=== PATIENT | female | born 1935 | race Caucasian/White ===

== ENCOUNTER → 2023-03-11 | Outpatient (CLI) | payer MEDICARE ==
[2020-05-31 11:40] VITALS: BP 126/76
[~2023-03-11] MED LIST: ANTIVERT25 MG PO; ASPIRIN E.C. 8181 MG PO; ATORVASTATIN CA40 MG PO; CALTRATE 600 +1 TAB PO; CELEXA 20MG20 MG/TA1 PO; CENTRUM SILVER1 EACH PO; CLOPIDOGREL75 MG PO; DEXILANT60 MG PO; DITROPAN XL 5MG5 M1 PO; DOCUSATE SODIU1 EACH PO; ESCITALOPRAM10 MG PO; FISH OIL1 IU PO; KETOROLAC10 MG PO; LIPITOR 40MG TA40 MG PO; LISINOPRIL5 MG PO; LOPRESSOR 225 MG/TAB PO; LOPRESSOR50 MG PO; MACROBID 100 M100 MG PO; MEDROL DOSEPAK4 MG PO; MELOXICAM15 MG PO; METOPROLOL TART25 MG PO; NORCO 10-325 T1 EACH PO; NORCO 325 MG-51 TA1 PO; PEPCID 20MG TAB20 MG PO; PRAVACHOL20 MG PO; TRAMADOL 50 MG TAB PO; TYLENOL EXTRA500 M2 PO; XARELTO15 MG PO
== END ==
LOC: RAD 09:42
DX: Z12.31 Encounter for screening mammogram for malignant neoplasm of breast (principal); Z13.820 Encounter for screening for osteoporosis; M85.89 Other specified disorders of bone density and structure, multiple sites

== ENCOUNTER → 2023-03-11 | Outpatient (CLI) | payer MEDICARE ==
[2020-05-31 11:40] VITALS: BP 126/76
== END ==
LOC: MAMMO 09:33
DX: Z12.31 Encounter for screening mammogram for malignant neoplasm of breast (principal); Z13.820 Encounter for screening for osteoporosis

== ENCOUNTER → 2023-07-25 | Outpatient (CLI) | payer MEDICARE ==
[2023-07-25 09:56] LABS: ALBUMIN 4.5 g/dL (3.4-4.8); BASO # 0.05 K/mm3 (0.02-0.10); EOS # 0.21 K/mm3 (0.04-0.40); EOS % 3.1 % (1.0-5.0); HEMATOCRIT 38.8 % (37.0-47.0); HEMOGLOBIN 12.3 g/dL (12.5-16.0); MEAN CELL VOLUME 95 fl (78-100); MEAN CORPUSCULAR HEMOGLOBIN 30 pg (27-31); MEAN CORPUSCULAR HGB CONC 32 g/dL (33-37); MEAN PLATELET VOLUME 10.9 fl (7.4-10.4); MONO # 0.58 K/mm3 (0.20-0.80); NEU # 4.56 K/mm3 (1.40-6.50); PLATELET COUNT 208 K/mm3 (130-400); RED BLOOD COUNT 4.08 M/mm3 (4.10-5.30); WHITE BLOOD COUNT 6.8 K/mm3 (4.8-10.8)
[2023-07-25 09:57] LABS: CALCIUM 9.4 mg/dL (8.3-10.5)
[2023-07-25 09:58] LABS: TOTAL PROTEIN 7.2 g/dL (6.2-8.1)
[2023-07-25 10:00] LABS: TOTAL BILIRUBIN 0.5 mg/dL (0.2-1.2)
[2023-07-25 10:05] LABS: MAGNESIUM 2.01 mg/dL (1.60-2.60)
== END ==
LOC: RAD 08:35
PROVIDERS: Internal Medicine
DX: M51.34 Other intervertebral disc degeneration, thoracic region (principal); M51.36 Other intervertebral disc degeneration, lumbar region; M43.16 Spondylolisthesis, lumbar region

== ENCOUNTER → 2024-03-25 | Outpatient (CLI) | payer MEDICARE ==
[~2024-03-25] MED LIST changes: +ROSUVASTATIN CA20 MG PO
[2024-03-25 14:45] LABS: BASO # 0.02 K/mm3 (0.02-0.10); EOS # 0.17 K/mm3 (0.04-0.40); EOS % 2.6 % (1.0-5.0); HEMATOCRIT 37.6 % (37.0-47.0); HEMOGLOBIN 12.3 g/dL (12.5-16.0); LYMPH# 2.05 K/mm3 (1.50-4.00); MEAN CELL VOLUME 93 fl (78-100); MEAN CORPUSCULAR HEMOGLOBIN 30 pg (27-31); MEAN CORPUSCULAR HGB CONC 33 g/dL (33-37); MEAN PLATELET VOLUME 10.3 fl (7.4-10.4); MONO # 0.55 K/mm3 (0.20-0.80); NEU # 3.86 K/mm3 (1.40-6.50); PLATELET COUNT 234 K/mm3 (130-400); RED BLOOD COUNT 4.06 M/mm3 (4.10-5.30); RED CELL DISTRIBUTION WIDTH 13.1 % (11.5-14.5); WHITE BLOOD COUNT 6.7 K/mm3 (4.8-10.8)
[2024-03-25 14:48] LABS: ALBUMIN 4.5 g/dL (3.4-4.8)
[2024-03-25 14:49] LABS: CALCIUM 9.5 mg/dL (8.3-10.5)
[2024-03-25 14:50] LABS: TOTAL PROTEIN 7.2 g/dL (6.2-8.1)
[2024-03-25 14:52] LABS: TOTAL BILIRUBIN 0.4 mg/dL (0.2-1.2)
[2024-03-25 14:57] LABS: MAGNESIUM 2.02 mg/dL (1.60-2.60)
== END ==
LOC: LAB 14:18
PROVIDERS: Internal Medicine
DX: I10 Essential (primary) hypertension (principal)

== ENCOUNTER 2024-05-13 10:10 | Emergency (ER) | payer MEDICARE ==
[~2024-05-13] VITALS: Ht 165.1 cm; Wt 69.7 kg
[2024-05-13] MEDS ORDERED: Acetaminophen 325 MG TAB PO ONE (11:30)
[2024-05-13 13:02] LABS: PH-URINE 7.5 (5.0 - 8.0); URINE APPEARANCE CLEAR (CLEAR); URINE BILIRUBIN NEGATIVE (NEGATIVE); URINE COLOR YELLOW (YELLOW); URINE GLUCOSE NEGATIVE (NEGATIVE); URINE KETONE TRACE (NEGATIVE); URINE PROTEIN(semi-quant) NEGATIVE (NEGATIVE)
[2024-05-13 13:03] LABS: URINE BLOOD NEGATIVE (NEGATIVE); URINE LEUKOCYTE ESTERASE NEGATIVE (NEGATIVE); URINE NITRATE NEGATIVE (NEGATIVE); URINE WBC 0-1 /hpf (0-3)
--- NOTE | 2024-05-13 13:50 | NUR ---
spoke with Zan, she receives her medication from [facility]. She does not forget to take her medications. Today she fell while walking. BIMS testing was completed and Rosa did very well not missing any questions. she scored 15 of 15. Rosa lives alone and does rather well taking care of herself. this CM asked how will you care for yourself when you go home and only are able to use one arm/hand. She states that she feels very well. She states that her son Olman will provide help with groceries and such. Called Olman her son, advised she will need transportation to and from doctor visits. Olman asked Rosa's ex to transport. Rosa is okay with this assistance for transportation. Rosa states she fell about 3-4 weeks ago. Related to sidewalks in town being torn up and unwalkable. Per Rosa the post office will not deliver mail to the homes that the sidewalks are being redone.
[2024-05-13] MEDS ORDERED: AMOXICILLIN 50500 MG PO (14:29)
[2024-05-13 14:35] VITALS: BP 172/89
[2024-05-13 14:45] LABS: BASO # 0.04 K/mm3 (0.02-0.10); EOS # 0.07 K/mm3 (0.04-0.40); EOS % 0.7 % (1.0-5.0); HEMATOCRIT 41.9 % (37.0-47.0); HEMOGLOBIN 13.7 g/dL (12.5-16.0); LYMPH# 1.53 K/mm3 (1.50-4.00); MEAN CELL VOLUME 94 fl (78-100); MEAN CORPUSCULAR HEMOGLOBIN 31 pg (27-31); MEAN CORPUSCULAR HGB CONC 33 g/dL (33-37); MEAN PLATELET VOLUME 11.2 fl (7.4-10.4); MONO # 0.64 K/mm3 (0.20-0.80); NEU # 8.16 K/mm3 (1.40-6.50); PLATELET COUNT 183 K/mm3 (130-400); RED BLOOD COUNT 4.47 M/mm3 (4.10-5.30); WHITE BLOOD COUNT 10.5 K/mm3 (4.8-10.8)
[2024-05-13 14:50] LABS: ALBUMIN 4.8 g/dL (3.4-4.8)
[2024-05-13 14:52] LABS: TOTAL PROTEIN 7.7 g/dL (6.2-8.1)
[2024-05-13 14:54] LABS: TOTAL BILIRUBIN 0.6 mg/dL (0.2-1.2)
== END 2024-05-13 14:40 | disposition short-term general hospital (02) ==
LOC: ED 10:10
PROVIDERS: Nurse Practitioner
DX: S52.612A Displaced fracture of left ulna styloid process, initial encounter for closed fracture (principal); S52.502A Unspecified fracture of the lower end of left radius, initial encounter for closed fracture; S02.40CA Maxillary fracture, right side, initial encounter for closed fracture; S00.211A Abrasion of right eyelid and periocular area, initial encounter; S00.81XA Abrasion of other part of head, initial encounter; Z95.5 Presence of coronary angioplasty implant and graft; W10.1XXA Fall (on)(from) sidewalk curb, initial encounter